=== PATIENT | male | born 1940 | race Asian ===

== ENCOUNTER 2016-12-06 10:24 | Emergency (ER) | payer MEDICARE, OTHER ==
[~2016-12-06] VITALS: Ht 165.1 cm; Wt 66.2 kg
[2016-12-06 10:36] VITALS: BP 142/90
--- NOTE | 2016-12-06 10:40 | NUR ---
Patient taken to XRAY via wheelchair by tech, accompanied by family. RN evaluating patient at bedside.
--- NOTE | 2016-12-06 10:54 | NUR ---
Patient returned from XRAY, transferred to bed 8. RN evaluating patient at bedside.
--- NOTE | 2016-12-06 11:01 | NUR ---
PT PRESENTS TO ER W/C/O LEFT KNEE PAIN S/P MECHANICAL FALL AT HOME THIS AM. ABRASION NOTED TO LEFT KNEE AND RT KNEE BUT DENIES ANY PAIN ON RT KNEE.DENIES HITTING HIS HEAD; HX HTN, HYPOTHYROIDISM, HYPERLIPIDEMIA.DENIES N/V/D; SKIN IS PINK/WARM/DRY; AAOX4; LUNGS CLEAR BL; HR EVEN AND REGULAR; PT DENIES ANY FEVER, CP, SOB, OR COUGH AT THIS TIME; PATIENT STATES PAIN OF 9/10 AT THIS TIME; PATIENT POSITIONED FOR COMFORT; HOB ELEVATED; BEDRAILS UP X2; BED DOWN. MONITORS IN PLACED.
--- NOTE | 2016-12-06 11:17 | NUR ---
Dr. Davis evaluating patient at bedside.
[2016-12-06] MEDS ORDERED: KETOROLAC 60 MG/2 ML VIAL IM ONE (11:25)
[2016-12-06] MEDS ORDERED: BACITRACIN OINT 500 UNITS/GM PKT TP ONE (11:29)
--- NOTE | 2016-12-06 11:58 | NUR ---
SPLINT APPLIED BY EMT;PT VERBALIZES FEELING MUCH BETTER;WILL CONTINUE TO MONITOR PT.
--- NOTE | 2016-12-06 12:31 | NUR ---
Patient discharged with v/s stable. Written and verbal after care instructions given and explained. Patient alert, oriented and verbalized understanding of instructions. Ambulatory with steady gait. All questions addressed prior to discharge. ID band removed. Patient advised to follow up with PMD. Rx of MOTRIN AND TYLENOL W/ CODEINE given. Patient educated on indication of medication including possible reaction and side effects. Opportunity to ask questions provided and answered.
[2016-12-06 12:32] VITALS: BP 145/84
--- NOTE | 2016-12-06 12:40 | NUR ---
obtained taxi voucher for patient and to go home since lt. leg splinted.patient agreed to leave car in the parking lot till ready to pick it up/security made aware. waiting for to get back from pharmacy then will call taxi, but patient/ started getting out from the er lobby to the parking lot.patient refused to use taxi, he insisted he will drive home even after telling him not safe,still refusing and keep walking with walker.assisted to car via w/c.patient got to his car without difficulty, and drove home with . watched patient drove by er.
== END 2016-12-06 12:31 | disposition home or self-care (01) ==
LOC: MED 10:24
DX: S82.002A Unspecified fracture of left patella, initial encounter for closed fracture (principal); I10 Essential (primary) hypertension; E78.5 Hyperlipidemia, unspecified; W01.0XXA Fall on same level from slipping, tripping and stumbling without subsequent striking against object, initial encounter; Y93.89 Activity, other specified; Y92.096 Garden or yard of other non-institutional residence as the place of occurrence of the external cause; Y99.8 Other external cause status
CPT/HCPCS: 29505; 73562; 90471; 90715; 96372; 99284; J1885